=== PATIENT | female | born 1945 | race Caucasian/White ===

== ENCOUNTER 2018-11-04 12:57 | Emergency (ER) | payer MEDICARE, OTHER ==
[2018-11-04] MEDS ORDERED: HYDROCODONE/ACETAMINOPHEN 5/325 MG TAB ONE (14:06)
== END 2018-11-04 15:29 | disposition home or self-care (01) ==
LOC: EDH 12:57
DX: S62.395A Other fracture of fourth metacarpal bone, left hand, initial encounter for closed fracture (principal); S62.397A Other fracture of fifth metacarpal bone, left hand, initial encounter for closed fracture; I10 Essential (primary) hypertension; V49.59XA Passenger injured in collision with other motor vehicles in traffic accident, initial encounter; Y93.89 Activity, other specified; Y92.89 Other specified places as the place of occurrence of the external cause; Y99.8 Other external cause status
CPT/HCPCS: 73130